=== PATIENT | male | born 1980 | race Caucasian/White ===

== ENCOUNTER 2016-06-22 17:08 | Emergency (ER) | payer BC ==
[2016-06-22] MEDS ORDERED: CEFTRIAXONE SODIUM 1 G VIAL ONE (19:17)
== END 2016-06-22 19:50 | disposition home or self-care (01) ==
LOC: ED 17:08
DX: K04.7 Periapical abscess without sinus (principal); K05.10 Chronic gingivitis, plaque induced; L03.211 Cellulitis of face; F17.210 Nicotine dependence, cigarettes, uncomplicated